=== PATIENT | female | born 1960 | race Caucasian/White ===

== ENCOUNTER 2016-10-05 16:23 | Observation (INO) ==
[2016-10-05] MEDS ORDERED: 0.9 % Sodium Chloride 500 ML IVC ONE (16:51)
[2016-10-05 17:03] LABS: Basophils % 0.7 %; Eosinophils # 0.1 K/mcL (0.0-0.6); Eosinophils % 1.2 %; Hematocrit 42.6 % (35.3-44.9); Hemoglobin 13.8 g/dL (11.5-15.4); Immature Granulocytes % 0.5 % (0-4); Lymphocytes # 0.9 K/mcL (0.6-4.6); Lymphocytes % 15.2 %; Mean Corpuscular HGB Conc 32.4 g/dL (31.6-35.5); Mean Corpuscular Hemoglobin 25.9 pg (28.0-33.3); Mean Corpuscular Volume 79.9 fL (83.0-100.0); Mean Platelet Volume 9.9 fL (9.4-12.4); Monocytes # 0.6 K/mcL (0.0-1.3); Monocytes % 9.2 %; Neutrophils # 4.4 K/mcL (1.6-8.9); Platelet Count 236 K/mcL (140-400); Red Blood Count 5.33 M/mcL (3.82-4.97); Red Cell Distribution Width 13.6 % (11.5-14.5); Segmented Neutrophils % 73.2 %
--- NOTE | 2016-10-05 17:07 | Emergency Department Note ---
Disposition Clinical Impression: Chest pain Qualifiers: Chest pain type: unspecified Qualified Code(s): R07.9 - Chest pain, unspecified Disposition: Admitted As Inpatient Condition: Fair Time of Disposition: 18:18 Chest Pain HPI - General Chief Complaint: ED Chest Pain Stated Complaint: chest pain Source: patient, EMS Limitations: no limitations Vital Signs Reviewed: Yes Nursing Notes Reviewed: Yes - History of Present Illness HPI Narrative: 74-year-old female with chest pain for last 2 days. Patient says that her chest pain is worse feels her pressure when she is lying flat or sitting night. She is currently chest pain-free. She was transferred from the urgent care secondary to development of new left bundle branch block, other chest pain was free she was given 4-81 mg baby aspirin, nitroglycerin. Patient states that her pain does wake up today. Intermittent last days. She is a history of non- insulin-dependent diabetes, hypertension, no previous heart catheterizations. nonsmoker. Pt complaint: chest pain Onset (ago): day(s) (2) Duration: intermittent Onset: during rest Pain Location: substernal Severity: now resolved Severity scale (1-10): 0 Quality: aching, heaviness Improves with: nothing Worsens with: exertion, inspiration, supine Associated symptoms: Reports: nausea, dyspnea. Denies: vomiting, diaphoresis Treatments prior to arrival chest pain: aspirin - Related Data On Oral Contraceptives: No Home Medications Medication Instructions Recorded Confirmed Citalopram [CeleXA] 40 mg PO DAILY 06/07/15 10/05/16 Fluticasone Propionate Nasal 50 mcg NS DAILY 06/07/15 10/05/16 [Flonase] Liraglutide [Victoza 2-Luis A] 1.2 mg SQ QAM 06/07/15 10/05/16 Lisinopril [Zestril] 10 mg PO DAILY 06/07/15 10/05/16 Omeprazole [PriLOSEC] 40 mg PO DAILY 06/07/15 10/05/16 TraMADol [Ultram] 50 - 100 mg PO Q6HR PRN 06/07/15 10/05/16 Aspirin [Lo-Dose Aspirin EC] 81 mg PO DAILY 10/05/16 10/05/16 Aspirin/Acetaminophen/Caffeine 2 tab PO DAILY 10/05/16 10/05/16 [Excedrin Extra Strength Caplet] Insulin Glargine,Hum.rec.anlog 70 unit SQ HS 10/05/16 10/05/16 [Lantus Solostar] Allergies Allergy/AdvReac Type Severity Reaction Status Date / Time No Known Allergies Allergy Verified 06/07/15 13:52 Review of Systems: A 14 point ROS was obtained and was negative except as per below or as documented in the HPI. Constitutional: Denies: fever, chills, weakness, weight change Eyes: Denies: eye pain, eye discharge, vision change ENT: Denies: ear pain, throat pain, hearing loss, epistaxis, congestion, Cardiovascular: chest pain Denies: , palpitations, dyspnea on exertion, edema, syncope Respiratory: Denies: cough, dyspnea, wheezes, hemoptysis, stridor Gastrointestinal: Denies: abdominal pain, nausea, vomiting. diarrhea, constipation, hematemesis, hematochezia Genitourinary: Denies: urgency, dysuria, frequency, hematuria Musculoskeletal: Denies: back pain, neck pain, arthralgia, myalgia Integumentary: Denies: rash, abrasion, lesions Neurological: Denies: headache, weakness, numbness, paresthesias, confusion, abnormal gait Psychiatric: Denies: anxiety, depression, suicidal thoughts, homicidal thoughts , Endocrine: Denies: fatigue Hematological/Lymphatic: Denies: easy bleeding, easy bruising Allergic/Immunologic: Denies: facial swelling, urticaria All systems ED: reviewed and negative except as stated. Chest Pain PMH - Past Medical History Medical history: Reports: cancer, diabetes, GERD, hypertension, other Surgical history: Reports: hysterectomy (At [facility] 10/2014) Psychiatric history: Reports: no psych history [employer] history: Reports: non-contributory - Social History Smoking Status: Never smoker Alcohol use: Reports: none Drug use: Reports: none Physical Exam General: H appears mildly anxious but in no acute distress Head: NCAT, no lesions Eyes: sclera anicteric, conjunctiva normal, PERRLA bilaterally, EOMI Bilaterally Ears: normal inspection, external ear wnl Nose: nasal septum nondeviated, sinuses nontender Throat: good dentition, mucous membranes moist Neck: no lymphadenopathy, trachea midline no deviation, no JVD Resp: CTA bilaterally, no resp distress, symmetric chest rise, no wheezes, rales , or rhonchi bilaterally CV: Sinus tachycardia normal S1 and S2, no m/g/r, Pulses +2 Rad, +2 DP/PT Abdomen: Soft, NTND, no hepatosplenomegaly, no hernias, Negative Rovsing's sign , Negative Ramirez's sign Back: normal inspection, no tenderness to palpation, Negative CVA tenderness bilaterally Neuro: A&O3, CN II-XII grossly intact bilaterally, no motor or sensory deficits bilaterally, gait normal, GCS 15 [id number] Ext: normal inspection, symmetric Active and Passive ROM UE and LE bilaterally , no pedal edema bilaterally Psych: normal mood, normal affect Skin: No rashes, skin warm, dry, intact - General Limitations: no limitations General appearance: alert, in no apparent distress Course Course Narrative: 56-year-old female chest pain arrest last 2 days, she has a left bundle branch block, this appears new but the last EKG that she had was in 2009, I did discuss the case with Dr. Apple interventional cardiology and sent the EKG at 16: [address] Apple and Dr. Mohr, they state that the left bundle branch alone is not criteria for ACS or indication for a STEMI alert, he did recommend working up the patient as a possible ACS, chest pain rule out, given no chest pain now, is unlikely the patient is a STEMI A states no activation at this time. CP Workup ordered. - Reevaluation(s) Reevaluation #1: Admitted to [facility] Time: 18:19 Vital Signs Temperature 99.1 F 10/05/16 16:24 Pulse Rate 106 10/05/16 16:24 Respiratory Rate 16 10/05/16 16:24 Blood Pressure 172/105 10/05/16 16:24 O2 Sat by Pulse Oximetry 97 10/05/16 16:24 Temperature 99.1 F 10/05/16 16:24 Pulse Rate 89 10/05/16 18:00 Respiratory Rate 16 10/05/16 18:00 Blood Pressure 128/85 10/05/16 18:00 O2 Sat by Pulse Oximetry 97 10/05/16 18:00 Oxygen Delivery Oxygen Delivery Room Air Chest Pain - MDM Narrative Medical decision making narrative: 56-year-old female with new onset left bundle branch block, chest pain at rest, mostly sleeping, she has been chest pain-free in the ED, she did get 324 mg of aspirin, and admitted to medicine service in stable condition for chest pain rule out. Pulmonary negative, EKG showed new left bundle-branch block compared to previous EKG 6 years ago interventional list discussed no STEMI criteria at this time, - Medical Records Medical records reviewed: Yes I reviewed the patient's medical records. - Lab Data Lab results reviewed: Yes I reviewed the patient's lab results. Result diagrams: 10/05/16 16:35 10/05/16 16:35 Lab Results 10/05/16 10/05/16 10/05/16 Range/Units 16:35 16:35 16:35 WBC 6.0 (4.3-11.1) K/mcL RBC 5.33 H (3.82-4.97) M/mcL Hgb 13.8 (11.5-15.4) g/dL Hct 42.6 (35.3-44.9) % MCV 79.9 L (83.0-100.0) fL MCH 25.9 L (28.0-33.3) pg MCHC 32.4 (31.6-35.5) g/dL RDW 13.6 (11.5-14.5) % Plt Count 236 (140-400) K/mcL MPV 9.9 (9.4-12.4) fL Immature Gran % 0.5 (0-4) % Seg Neutrophils % 73.2 % Lymphocytes % 15.2 % Monocytes % 9.2 % Eosinophils % 1.2 % Basophils % 0.7 % Neutrophils # 4.4 (1.6-8.9) K/mcL Lymphocytes # 0.9 (0.6-4.6) K/mcL Monocytes # 0.6 (0.0-1.3) K/mcL Eosinophils # 0.1 (0.0-0.6) K/mcL Basophils # 0.0 (0.0-0.2) K/mcL PT 12.0 (9.4-12.1) Seconds INR 1.1 APTT 33.8 (26.0-36.0) Seconds D-Dimer 477 (0-500) ng/mLFEU Sodium (136-145) mEq/L Potassium (3.5-4.5) mEq/L Chloride (98-109) mEq/L Carbon Dioxide (19-29) mEq/L BUN (7-20) mg/dL Creatinine (0.57-1.11) mg/dL Est GFR ( Amer) (> 60) Est GFR (Non-Af Amer) (> 60) BUN/Creatinine Ratio (6-26) Glucose (70-99) mg/dL Calculated Osmolality (280-300) Calcium (8.6-10.8) mg/dL Troponin I (0-0.03) ng/mL B-Natriuretic Peptide 182 H (0-100) pg/mL 10/05/16 10/05/16 Range/Units 16:35 16:35 WBC (4.3-11.1) K/mcL RBC (3.82-4.97) M/mcL Hgb (11.5-15.4) g/dL Hct (35.3-44.9) % MCV (83.0-100.0) fL MCH (28.0-33.3) pg MCHC (31.6-35.5) g/dL RDW (11.5-14.5) % Plt Count (140-400) K/mcL MPV (9.4-12.4) fL Immature Gran % (0-4) % Seg Neutrophils % % Lymphocytes % % Monocytes % % Eosinophils % % Basophils % % Neutrophils # (1.6-8.9) K/mcL Lymphocytes # (0.6-4.6) K/mcL Monocytes # (0.0-1.3) K/mcL Eosinophils # (0.0-0.6) K/mcL Basophils # (0.0-0.2) K/mcL PT (9.4-12.1) Seconds INR APTT (26.0-36.0) Seconds D-Dimer (0-500) ng/mLFEU Sodium 138 (136-145) mEq/L Potassium 3.8 (3.5-4.5) mEq/L Chloride 106 (98-109) mEq/L Carbon Dioxide 23 (19-29) mEq/L BUN 10 (7-20) mg/dL Creatinine 0.83 (0.57-1.11) mg/dL Est GFR ( Amer) > 60 (> 60) Est GFR (Non-Af Amer) > 60 (> 60) BUN/Creatinine Ratio 12 (6-26) Glucose 151 H (70-99) mg/dL Calculated Osmolality 288 (280-300) Calcium 9.5 (8.6-10.8) mg/dL Troponin I 0.00 (0-0.03) ng/mL B-Natriuretic Peptide (0-100) pg/mL - Radiology Data Radiology results reviewed: Yes I reviewed the patient's radiology results. Chest X-Ray 10/05/16 16:51 IMPRESSION: No acute cardiopulmonary disease. D/ / Girish España MD / Girish España MD Interpreting Provider: Girish España MD - EKG Data EKG attestation: Yes I reviewed and interpreted this EKG. EKG shows normal: sinus rhythm (Ventricular rate 10 2 bpm [place] 162 QRS 144 QTc 428 ) Paulina/QRS: LBBB When compared to previous EKG there are: changes noted (She does noted new Left Bundle branch block from previous EKG May 2010) Interpretation: nonspecific ST-T wave changes - Core Measures AMI Core Measures Followed: Yes Heart Score - Score History: Moderately Suspicious EKG: Non Specific repolarisation Disturbance Age: 45-65 Risk Factors: Equal/Greater than 3 risk factor or history of atherosclerotic disease Troponin: Less than normal limit HEART Score Total: 5 Attestation Statement - Attestation Attestation: Patient was seen with resident physician. I reviewed the history, physical, assessment and plan, and agree with the findings. I also personally evaluated this patient and had [id number] time with this patient. 56-year-old female presents to the emergency department with chest pain for last 2 nights. Patient states the pain is mostly at night when she is lying down. Pressure sensation in her chest. It is associated with nausea. She has not had any vomiting. She did note that she had a period of sweating but she is not sure if it was associated with the chest pressure not. She was seen in urgent care and was found to have a left bundle branch block EKG. She is given aspirin and sent to the emergency department. Currently she is chest pain-free. On examination ENT is normal. Heart and lungs normal. Abdomen soft and nontender. Extremities are unremarkable no swelling. Neurologically patient is intact. On reviewing her EKG she does have what appears to be new left bundle-branch block, however her old EKG's from approximately 6 years ago such difficult to say when that change occurred. She is not currently chest pain- free and looks relatively comfortable, and does not appear to have acute coronary syndrome. We did discuss his case with both on-call cardiology and on- call interventionalists to have them review the EKGs and ensure the regular chest pain workup was indicated as opposed to something more aggressive. They were in agreement that a chest pain workup was indicated that no additional advanced cardiology intervention was required at this time. Will admit the patient to the hospitalist service for further evaluation and treatment as indicated by her symptoms. I agree with resident physician assessment and plan.
[2016-10-05 17:11] LABS: INR 1.1
[2016-10-05 17:14] LABS: Activated Partial Thrombo Time 33.8 Seconds (26.0-36.0); BUN/Creatinine Ratio 12 (6-26); Blood Urea Nitrogen 10 mg/dL (7-20); Calcium 9.5 mg/dL (8.6-10.8); Carbon Dioxide 23 mEq/L (19-29); Chloride 106 mEq/L (98-109); Glucose 151 mg/dL (70-99); Osmolality,Calculated 288 (280-300); Potassium 3.8 mEq/L (3.5-4.5); Sodium 138 mEq/L (136-145); eGFR For African Americans > 60 (> 60); eGFR For Non-African Americans > 60 (> 60)
[2016-10-05] MEDS ORDERED: Naloxone 0.4 MG/ML INJ IVP PRN (20:28)
[2016-10-05] MEDS ORDERED: Ondansetron ODT 4 MG TAB.RAPDIS SL PRN (20:28)
[2016-10-05] MEDS ORDERED: D5% in Water 1,000 ML IV PRN (20:31)
[2016-10-05] MEDS ORDERED: Dextrose Gel 15 GM PO PRN ×2 (20:31)
[2016-10-05] MEDS ORDERED: *HR* Dextrose 50 % in Water (Syg) 50 ML SYRINGE IVP PRN (20:31)
[2016-10-05] MEDS ORDERED: traMADol 50 MG TABLET PO PRN (20:33)
[2016-10-05] MEDS ORDERED: Nitroglycerin 0.4 MG TAB.SUBL SL PRN (20:34)
[2016-10-05] MEDS ORDERED: Acetaminophen/Aspirin/Caffeine TABLET PO PRN (20:44)
[2016-10-05] MEDS ORDERED: Acetaminophen 325 MG TABLET PO PRN (20:44)
--- NOTE | 2016-10-05 20:52 | Internal Med History&Physical ---
Date of Encounter: 10/05/16 Time of Encounter: 20:20 Assessment and Plan (1) Chest pain Current visit: Yes Status: Acute -Patient denies any episodes of chest pressure or chest pain throughout the day today -Left bundle branch on EKG is chronic as per the documented findings of EKG in May 2015 -However patient did have chest pressure the night before and given medical comorbidities will rule out ACS at this time -Trend serial troponins, ekg -Aspirin, Lipitor -Follow up lipid panel -Follow up 2-D echo -Follow up cardiology consultation ([employer] called by the ER physician) -Nitroglycerin sublingual when necessary chest pain -O2 supplementation as needed -We will keep nothing by mouth after midnight for any cardiology workup in the morning Qualifiers: Chest pain type: unspecified Qualified Code(s): R07.9 - Chest pain, unspecified (2) Left bundle branch block (LBBB) Current visit: Yes Status: Acute Appears to be chronic in nature last reported on the EKG in May 2015 (3) URI with cough and congestion Current visit: Yes Status: Chronic Continue supportive care Monitor off antibiotics Tylenol when necessary for fever Guaifenesin when necessary for cough (4) Hyperglycemia due to type 2 diabetes mellitus Current visit: Yes Status: Chronic Continue home dose of Lantus Hold oral antihyperglycemic agents at this time Started low dose correctional sliding scale insulin algorithm as needed continue to monitor fingerstick and blood glucose Qualifiers: Diabetes mellitus senior care insulin use: with senior care use Qualified Code( s): E11.65 - Type 2 diabetes mellitus with hyperglycemia; Z79.4 - 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 (5) Hypertension Current visit: Yes Status: Acute BP within acceptable range continue home medications continue to monitor Qualifiers: Hypertension type: essential hypertension Qualified Code(s): I10 - Essential (primary) hypertension (6) DVT prophylaxis Current visit: Yes Status: Acute Heparin SQ (7) GERD (gastroesophageal reflux disease) Current visit: Yes Status: Chronic Continue home medications Qualifiers: Esophagitis presence: esophagitis presence not specified Qualified Code(s) : K21.9 - Gastro-esophageal reflux disease without esophagitis Internal Medicine - H&P: HPI Chief complaint: transfer from [facility] for chest pain Admitted From: Home Plans for Post Hospital Care: Home History of present illness: Ms. Layne is a 56 year old female past medical history of hypertension, diabetes , hyperlipidemia, GERD, obese, endometrial cancer status post hysterectomy was transferred to the ER from urgent care for evaluation of chest pain. Patient states that she is currently going through an upper respiratory tract infection which she got from her granddaughter. She went to an urgent care for evaluation of her URI symptoms but she states that the night prior she was not able to lay flat and continued to have chest pressure along with diaphoresis due to which she was transferred to the ER. Patient was given aspirin 324 milligrams by mouth prior to her transfer. In the ER, patient was chest pain-free however EKG was consistent with left bundle branch block. During my evaluation patient is resting comfortably in bed, denies any chest pain, shortness of breath at this time states she has chronic cough and feels congested. Denies any prior cardiac workup but states she has history of chest pain in the past. At this time she is chest pain-free and denies any headache, lightheadedness, shortness of breath, abdominal pain, nausea, vomiting, fever, or chills. After reviewing the prior records, patient was noted to have an EKG in May 2015 which reported a left bundle branch block and an echocardiogram was done at that time which showed normal left ventricular structure and function with LVEF of 60%, mild left ventricular diastolic dysfunction was noted. Past Med Surg Social Fam HX - Past Medical History Medical history: cancer, diabetes, GERD, hypertension, other Psychiatric history: no psych history - Past Surgical History Surgical History: hysterectomy (At [facility] 10/2014) - Social History Smoking Status: Never smoker Smokeless Tobacco Status: No Alcohol use: none Drug use: none - Family History Mother Family Member Ethnicity: Non- Living Status: Hx Family Cardiac Disorders: No Hx Family Respiratory Disorders: No Hx Family Cancer: No Hx Family GI Disorders: No Hx Family Endocrine Disorder: No Hx Family Neuromuscular Disorders: No Hx Family Neurologic Disorders: No Hx Family HEENT Disorders: No Hx Family Autoimmune Disorders: No Grandmother Living Status: Internal Medicine - H&P: Meds Citalopram [CeleXA] 40 mg PO DAILY 06/07/15 [History] Fluticasone Propionate Nasal [Flonase] 50 mcg NS DAILY 06/07/15 [History] Liraglutide [Victoza 2-Luis A] 1.2 mg SQ QAM 06/07/15 [History] Lisinopril [Zestril] 10 mg PO DAILY 06/07/15 [History] Omeprazole [PriLOSEC] 40 mg PO DAILY 06/07/15 [History] TraMADol [Ultram] 50 - 100 mg PO Q6HR PRN 06/07/15 [History] Aspirin [Lo-Dose Aspirin EC] 81 mg PO DAILY 10/05/16 [History] Aspirin/Acetaminophen/Caffeine [Excedrin Extra Strength Caplet] 2 tab PO DAILY 10/05/16 [History] Insulin Glargine,Hum.rec.anlog [Lantus Solostar] 70 unit SQ HS 10/05/16 [History ] Allergies No Known Allergies Allergy (Verified 06/07/15 13:52) All Systems PM: A 10-system review of systems was performed and is negative for pertinent findings except as documented above in the HPI. - Constitutional Constitutional: as per HPI - Constitutional Vitals: Temp Pulse Resp BP Pulse Ox 98.5 F 82 15 135/88 96 10/05/16 18:50 10/05/16 18:50 10/05/16 18:50 10/05/16 18:50 10/05/16 18:50 Internal Med - H&P Results - Labs CBC & Chem 7: 10/05/16 16:35 10/05/16 16:35
[2016-10-05] MEDS: Insulin DETEMIR 100 UNIT/ML X5UNITS SQ SCH (21:56)
[2016-10-06 04:47] LABS: Basophils % 1.1 %; Eosinophils # 0.1 K/mcL (0.0-0.6); Eosinophils % 2.2 %; Hematocrit 40.3 % (35.3-44.9); Immature Granulocytes % 0.6 % (0-4); Lymphocytes % 29.1 %; Mean Corpuscular HGB Conc 32.3 g/dL (31.6-35.5); Mean Corpuscular Hemoglobin 26.3 pg (28.0-33.3); Mean Corpuscular Volume 81.6 fL (83.0-100.0); Mean Platelet Volume 9.8 fL (9.4-12.4); Monocytes # 0.5 K/mcL (0.0-1.3); Monocytes % 13.7 %; Neutrophils # 1.9 K/mcL (1.6-8.9); Platelet Count 198 K/mcL (140-400); Red Blood Count 4.94 M/mcL (3.82-4.97); Red Cell Distribution Width 13.8 % (11.5-14.5); Segmented Neutrophils % 53.3 %
[2016-10-06 05:06] LABS: BUN/Creatinine Ratio 11 (6-26); Blood Urea Nitrogen 9 mg/dL (7-20); Carbon Dioxide 26 mEq/L (19-29); Chloride 109 mEq/L (98-109); Chol/HDL Ratio 6.1 (0-4.9); Cholesterol 212 mg/dL (< 200); Glucose 71 mg/dL (70-99); HDL Cholesterol 35 mg/dL (40-59); LDL Cholesterol,Calculated 138 mg/dL (0-99); Magnesium 2.2 mg/dL (1.6-2.6); Osmolality,Calculated 291 (280-300); Phosphorous 4.3 mg/dL (2.3-4.7); Potassium 3.6 mEq/L (3.5-4.5); Sodium 142 mEq/L (136-145); Triglycerides 195 mg/dL (< 150); eGFR For African Americans > 60 (> 60); eGFR For Non-African Americans > 60 (> 60)
[2016-10-06] MEDS: *HR* Heparin 5,000 UNIT/ML VIAL SQ SCH ×2 (06:19→18:26)
[2016-10-06] MEDS ORDERED: Acetaminophen/Aspirin/Caffeine TABLET PO SCH (09:00)
[2016-10-06] MEDS: GuaiFENesin Liq 200 MG/10 ML UDC PO PRN ×2 (09:20→18:25)
[2016-10-06] MEDS: Aspirin Enteric Coated 81 MG Tablet PO SCH (09:21)
[2016-10-06] MEDS: Fluticasone Propionate Nasal 50 MCG/SPRAY BOTTLE NS SCH (09:24)
--- NOTE | 2016-10-06 09:24 | Cardiology Consult Note ---
Date of Encounter: 10/06/16 Time of Encounter: 09:11 Assessment and Plan (1) Chest pain Current Visit: Yes Status: Acute Atypical--pleuritic in nature in setting of suspected URI--heaviness when coughing. Troponins negative x 3. No EKG changes--LBBB noted, but also present in 2014. Pt does have multiple risk factors for CAD--HTN, DM, HLD, s/p hysterectomy. We do recommend a nuclear stress test in the near future. Timing discussed, pt prefers to follow-up as outpt in upcoming weeks and have stress test as an outpt after she recovers from her URI, as she reports a headache and sore throat this morning and overall not feeling well. Denies any active chest pain. Echo pending. If no significant findings, outpt follow-up and stress test at that time. Will sign off if no significant findings on echo. Last echo 05/2015 EF 60%, mild LVDD. Qualifiers: Chest pain type: unspecified Qualified Code(s): R07.9 - Chest pain, unspecified (2) Left bundle branch block (LBBB) Current Visit: Yes Status: Chronic Not new--noted on EKG 05/2015 as well. Echo at that time showed EF 60%, mild LVDD. (3) URI with cough and congestion Current Visit: Yes Status: Acute URI with dry cough, headache, congestion, sore throat, low grade fever, chils. She is concerned because she was exposed to strep over the weekend. Will order strep test. Discussion w patient/family: The assessment and plan as outlined above was discussed with the patient and/or family members who expressed understanding and agreement. All questions were answered. Thank you for involving us in the care of your patient. Please call with any questions. I will discuss all the above with Dr. Mohr and make changes as necessary. History of Present Illness Consult date: 10/06/16 Requesting physician: Shahla Beatty Consult reason: Chest pain Chief complaint: congestion, sore throat History of present illness: Ms. Layne is a 56 year old female with PMH of hypertension, diabetes, hyperlipidemia, GERD, obese, endometrial cancer status post hysterectomy was transferred to the ER from urgent care for evaluation of chest pain. Patient states that she was exposed to strep throat over the weekend, developed a sore throat, headache, dry cough and congestion on Wednesday. She reports she was a little short of breath while lying flat on Wednesday night. She admits to low grade temps ~99 range and chills. She reports some chest heaviness only while coughing. She had a LBBB noted on EKG in 2014, not new and an echo at that time revealed EF 60% with mild diastolic dysfunction. Cardiology was consulted for further recommendations. Troponins negative x 3. Past Med Surg Social Fam HX - Past Medical History Medical history: cancer, diabetes, GERD, hyperlipidemia, hypertension, other Psychiatric history: no psych history - Past Surgical History Surgical History: hysterectomy (At [facility] 10/2014) - Social History Smoking Status: Never smoker Smokeless Tobacco Status: No Alcohol use: none Drug use: none - Family History Mother Family Member Ethnicity: Non- Living Status: Hx Family Cardiac Disorders: No Hx Family Respiratory Disorders: No Hx Family Cancer: No Hx Family GI Disorders: No Hx Family Endocrine Disorder: No Hx Family Neuromuscular Disorders: No Hx Family Neurologic Disorders: No Hx Family HEENT Disorders: No Hx Family Autoimmune Disorders: No Grandmother Living Status: Medications and Allergies Citalopram [CeleXA] 40 mg PO DAILY 06/07/15 [History] Fluticasone Propionate Nasal [Flonase] 50 mcg NS DAILY 06/07/15 [History] Liraglutide [Victoza 2-Luis A] 1.2 mg SQ QAM 06/07/15 [History] Lisinopril [Zestril] 10 mg PO DAILY 06/07/15 [History] Omeprazole [PriLOSEC] 40 mg PO DAILY 06/07/15 [History] TraMADol [Ultram] 50 - 100 mg PO Q6HR PRN 06/07/15 [History] Aspirin [Lo-Dose Aspirin EC] 81 mg PO DAILY 10/05/16 [History] Aspirin/Acetaminophen/Caffeine [Excedrin Extra Strength Caplet] 2 tab PO DAILY 10/05/16 [History] Insulin Glargine,Hum.rec.anlog [Lantus Solostar] 70 unit SQ HS 10/05/16 [History ] Allergies No Known Allergies Allergy (Verified 06/07/15 13:52) All Systems Review: A 10-system review of systems was performed and is negative for pertinent findings except as documented above in the HPI. - Constitutional Constitutional: chills, fever(s), headache(s) - Cardiovascular Cardiovascular: as per HPI, dyspnea at rest, dyspnea on exertion - Respiratory Respiratory: cough, dyspnea Physical Examination Vital Signs, Last 4 Hours Temp Pulse Resp BP Pulse Ox 10/06/16 07:07 98.2 F 91 16 128/82 97 Vital Signs Temp Pulse Resp BP Pulse Ox 10/06/16 07:07 98.2 F 91 16 128/82 97 10/06/16 03:46 97.8 F 71 15 103/65 96 10/06/16 00:05 98.2 F 83 14 126/70 95 10/05/16 18:50 98.5 F 82 15 135/88 96 10/05/16 18:39 16 123/83 10/05/16 18:00 89 16 128/85 97 10/05/16 17:30 89 16 134/90 97 10/05/16 17:15 94 16 130/87 98 10/05/16 17:00 97 16 133/96 97 10/05/16 16:24 99.1 F 106 16 172/105 97 Intake and Output 10/05/16 10/06/16 10/06/16 23:59 07:59 15:59 Intake Total 500 / 500 Balance 500 / 500 Intake: IV Fluids 500 / 500 0.9 % Sodium Chloride 500 500 / 500 ML @ 1875 mls/hr IVC . Q16M ONE Rx#:[id number] Other: Meal NPO # Voids 1 Weight 89.358 kg 84.595 kg Blood Glucose* 263 68 Patient Weight 10/06/16 23:59 Weight 84.595 kg General: Conversant, No Apparent Distress HEENT: Atraumatic, Normocephaly, Mucus Membranes Moist Neck: No JVD, Normal carotid pulses Cardiac: Reg Rate and Rhythm, Normal S1 and S2, No Murmur Lungs: Normal Breath Sounds, No Wheeze, Rales, Rhonchi Neuro: Alert and responsive, No focal deficits noted Abdomen: Soft, Non-Tender Skin: No rashes noted on visualized skin Musculoskeletal: No Chest Wall Tenderness Extremities: No Clubbing, No Cyanosis, No Edema, Normal Pulses Results 10/06/16 04:27 10/06/16 04:27 Lab Results 10/05/16 10/06/16 10/06/16 22:09 04:27 04:27 WBC 3.6 L Hgb 13.0 Hct 40.3 Plt Count 198 Sodium 142 Potassium 3.6 Chloride 109 Carbon Dioxide 26 BUN 9 Creatinine 0.83 Glucose 71 Calcium 9.0 Magnesium 2.2 Troponin I 0.00 10/06/16 04:27 WBC Hgb Hct Plt Count Sodium Potassium Chloride Carbon Dioxide BUN Creatinine Glucose Calcium Magnesium Troponin I 0.00 Short CBC 10/06/16 10/05/16 Range/Units 04:27 16:35 WBC 3.6 L 6.0 (4.3-11.1) K/mcL Hgb 13.0 13.8 (11.5-15.4) g/dL Hct 40.3 42.6 (35.3-44.9) % Plt Count 198 236 (140-400) K/mcL Neutrophils # 1.9 4.4 (1.6-8.9) K/mcL BMP 10/06/16 10/05/16 Range/Units 04:27 16:35 Sodium 142 138 (136-145) mEq/L Potassium 3.6 3.8 (3.5-4.5) mEq/L Chloride 109 106 (98-109) mEq/L Carbon Dioxide 26 23 (19-29) mEq/L BUN 9 10 (7-20) mg/dL Creatinine 0.83 0.83 (0.57-1.11) mg/dL Glucose 71 151 H (70-99) mg/dL Calcium 9.0 9.5 (8.6-10.8) mg/dL Cardiac Enzymes 10/06/16 10/05/16 10/05/16 Range/Units 04:27 22:09 16:35 Troponin I 0.00 0.00 0.00 (0-0.03) ng/mL Impressions Chest X-Ray 10/05/16 16:51 IMPRESSION: No acute cardiopulmonary disease. D/ / Girish sEpaña MD / Girish España MD Interpreting Provider: Girish España MD Active Medications Acetaminophen (Tylenol) 650 mg PO Q6HR PRN PRN Reason: Fever Stop: 04/06/17 20:45 Last Admin: 10/06/16 09:21 Dose: 650 mg Acetaminophen/Aspirin/Caffeine (Excedrin Ex) 2 each PO DAILY PRN PRN Reason: Headache Stop: 04/07/17 09:01 Aspirin (Aspirin Ec) 81 mg PO DAILY DEMETRA Stop: 04/07/17 09:01 Last Admin: 10/06/16 09:21 Dose: 81 mg Atorvastatin Calcium (Lipitor) 40 mg PO HS DEMETRA Stop: 04/06/17 21:16 Last Admin: 10/05/16 21:56 Dose: 40 mg Citalopram Hydrobromide (Celexa) 40 mg PO DAILY DEMETRA Stop: 04/07/17 09:01 Last Admin: 10/06/16 09:21 Dose: 40 mg Dextrose/Water (Dextrose 50% (Syg)) 25 ml IVP AD PRN PRN Reason: Hypoglycemia Stop: 04/06/17 20:32 Last Admin: 10/06/16 06:19 Dose: 25 ml Fluticasone Propionate (Flonase) 50 mcg NS DAILY DEMETRA PRN Reason: Protocol Stop: 04/07/17 09:01 Last Admin: 10/06/16 09:24 Dose: 50 mcg Glucagon (Glucagen) 1 mg IM ONCE PRN PRN Reason: Hypoglycemia Stop: 04/06/17 20:32 Glucose (Gluctose) 15 gm PO ONCE PRN PRN Reason: Hypoglycemia Stop: 04/06/17 20:32 Glucose (Gluctose) 30 gm PO ONCE PRN PRN Reason: Hypoglycemia Stop: 04/06/17 20:32 Guaifenesin (Robitussin Liq) 200 mg PO Q6HR PRN PRN Reason: Cough Stop: 04/06/17 20:45 Last Admin: 10/06/16 09:20 Dose: 200 mg Heparin Sodium (Porcine) (Heparin) 5,000 unit SQ Q12HR DEMETRA Stop: 04/07/17 06:01 Last Admin: 10/06/16 06:19 Dose: 5,000 unit Dextrose (Dextrose 5%) 1,000 mls @ 100 mls/hr IV CONT PRN PRN Reason: HYPOGLYCEMIA Stop: 04/06/17 20:32 Insulin Detemir (Levemir) 70 unit SQ HS DEMETRA Stop: 04/06/17 21:01 Last Admin: 10/05/16 21:56 Dose: 70 unit Insulin Human Lispro (Humalog) 0 units SQ Q6HR DEMTERA PRN Reason: Protocol Stop: 04/07/17 22:01 Lisinopril (Zestril) 10 mg PO DAILY DEMETRA PRN Reason: Protocol Stop: 04/07/17 09:01 Last Admin: 10/06/16 09:21 Dose: 10 mg Naloxone HCl (Narcan) 0.4 mg IVP Q2MIN PRN PRN Reason: Opioid Reversal Stop: 04/06/17 20:29 Nitroglycerin (Nitroglycerin) 0.4 mg SL Q5MIN PRN PRN Reason: Chest Pain Stop: 04/06/17 20:35 Omeprazole (Prilosec) 40 mg PO 0630 DEMETRA Stop: 04/07/17 06:31 Last Admin: 10/06/16 06:19 Dose: 40 mg Ondansetron HCl (Zofran Odt) 4 mg SL Q6HR PRN PRN Reason: Nausea And Vomiting Stop: 04/06/17 20:29 Tramadol HCl (Ultram) 50 mg PO Q6HR PRN PRN Reason: Pain Stop: 04/06/17 20:34 - Imaging and Cardiology Chest Xray: report reviewed Echo: report reviewed (05/2015 EF 60%, mild diastolic dysfunction.) - EKG Interpretation EKG results cardiology: personally reviewed (SR, LBBB), other (12 hour tele AVG HR 89 SR, no significant pauses or arrhythmias.) Consult Discharge Plan - Plan Referrals: Quoc Cordoba DO [Primary Care Provider] -
--- NOTE | 2016-10-06 11:53 | ECHO - Doppler Report ---
Echocardiogram Name: Latosha Layne Date of Study: 10/06/2016 Date: 1960 Ht: 66.0 in Medical Record#: [id number] Age: 56 Wt: 186.0 lb Gender: Female BSA: 1.94 Order #: [id number] Location: [facility] Room #: [id number] Reading Physician: Reji Sigala MD, [facility] Marketing Intelligence Analyst: Ritu Schwartz RDCS, RVT Ordering Physician: Shalha Beatty MD Primary Physician: Quoc Cordoba DO Indications: Rule Out Wall Motion Abnormalities Impressions: Moderate left ventricular systolic dysfunction, LVEF 35-40%. There is global hypokinesis with regional variations. There is atypical septal motion consistent with bundle branch block. Normal right ventricular size and function. Mildly dilated left atrium. No significant valvular dysfunction. Unable to estimate RVSP due to lack of TR jet. Left Ventricular Wall Motion: Rest Echo Findings The apex, apical inferior, mid inferior, basal inferior, apical anterior, mid anterior, basal anterior, apical septal, mid inferior septal, basal inferior septal, apical lateral, mid anterior lateral, basal anterior lateral, mid anterior septal, mid inferior lateral, basal anterior septal and basal inferior lateral ambriz were hypokinetic. Findings: Study Quality * Technically adequate exam. ECG Findings * Sinus rhythm with BBB. Left Ventricle * Moderate left ventricular systolic dysfunction, LVEF 35-40%. There is global hypokinesis with regional variations. There is atypical septal motion consistent with bundle branch block. * Normal LV size and wall thickness. * Indeterminate diastolic function. Right Ventricle * Normal right ventricular size and function. Left Atrium * Mildly dilated left atrium. Right Atrium * Normal right atrial size. Aorta * Normally sized aortic root. Pericardium * There is a trivial pericardial effusion present. IVC * Normal IVC dimensions and inspiratory collapse. Aortic Valve * Aortic valve not well visualized. * No aortic stenosis. * No aortic regurgitation. Mitral Valve * Mild mitral annular calcification * No mitral stenosis. * Trace mitral regurgitation. Tricuspid Valve * Normal tricuspid valve structure. * No tricuspid stenosis. * Trace tricuspid regurgitation. * Unable to estimate RVSP due to lack of TR jet. Pulmonic Valve * Pulmonic valve not well visualized. * No pulmonic stenosis. * No pulmonic regurgitation. History Hypertension Diabetes Hypercholesteremia Family History of CAD 06-08-2015 a Previous Echo was performed. Measurements: BP: 128/ 82 2D Normal Values RVIDd: 2.90 cm IVSd: 1.00 cm 0.6 - 1.0 cm LVIDd: 5.40 cm 3.7 - 5.6 cm LVPWd: 1.00 cm 0.6 - 1.1 cm LVIDs: 4.40 cm 1.5 - 3.6 cm AO: 3.10 cm < 4.0 cm %FS: 18.50 cm >25 % LA volume: 67 Updated by Reji Sigala MD, [facility] on 10/06/2016 11:46:35 AM electronically signed on 10/06/2016 11:48:06 AM with status of Final Wall Motion Rubi: 1=Normal, 2=Hypokinesis, 3=Akinesis, 4=Dyskinesis, 5=Aneurysmal, 6=Hyperkinetic, X=Not Visualized (Blank)=Missing
[2016-10-06] MEDS ORDERED: *HR* Heparin 10,000 UNIT/10 ML VIAL ONE (13:45)
[2016-10-06] MEDS ORDERED: 0.9 % Sodium Chloride 1,000 ML ONE ×2 (13:45→15:16)
[2016-10-06] MEDS ORDERED: Heparin 1,000 UNITS/500 mL NS 500 ML ONE (13:45)
--- NOTE | 2016-10-06 14:59 | Pre-Sedation Evaluation ---
Pre-sedation evaluation - Pre-sedation checklist Date of procedure: 10/06/16 Procedure: [facility] Recent Vitals: Last Vital Signs Temp 98.7 F 10/06/16 12:30 Pulse 94 10/06/16 12:30 Resp 16 10/06/16 12:30 BP 115/75 10/06/16 12:30 Pulse Ox 96 10/06/16 12:30 H&P (including ROS) documented in medical record: Yes Previous reaction to sedatives/anesthetics: No Dietary Status: NPO 6 hours prior to procedure Airway Assessment: Patient can open mouth completely, TMJ function normal, Micrognathia (under-bite, receding chin) absent, Neck with adequate range of motion Dentition: No loose teeth or bridges Possible difficult airway: No ASA Classification *see protocol: CLASS II-Mild systemic disease Plan of Care: Pt appropriate candidate for procedure/moderate/conscious sedation , Risks/benefits of procedure/sedation discussed w/ patient/family
[2016-10-06] MEDS ORDERED: *HR* Midazolam HCl 2 MG/2 ML VIAL ONE (15:15)
[2016-10-06] MEDS ORDERED: *HR* FentaNYL (PF) 100 MCG/2 ML VIAL ONE (15:16)
[2016-10-06] MEDS ORDERED: Furosemide 40 MG/4 ML VIAL ONE (15:49)
--- NOTE | 2016-10-06 16:01 | Internal Med Progress Note ---
Date of Encounter: 10/06/16 Time of Encounter: 13:00 - Assessment and plan (1) Systolic congestive heart failure Current Visit: Yes Status: Acute Assessment and plan: Patient was found systolic congestive heart failure, LVEF 35-40%. Possibly chronic. Patient has no symptoms. Plan for catheterization today. Further management plan will follow cardiology recommendation. Qualifiers: Congestive heart failure chronicity: chronic Qualified Code(s): I50.22 - Chronic systolic (congestive) heart failure (2) Chest pain Current Visit: Yes Status: Acute Assessment and plan: Resolved. 3 sets of troponin negative. ACS is ruled out. Qualifiers: Chest pain type: precordial chest pain Qualified Code(s): R07.2 - Precordial pain (3) Hypertension Current Visit: Yes Status: Acute Assessment and plan: BP is well-controlled, continue home medication Qualifiers: Hypertension type: essential hypertension Qualified Code(s): I10 - Essential (primary) hypertension (4) Hyperlipidemia Current Visit: Yes Status: Chronic Assessment and plan: continue home medication Qualifiers: Hyperlipidemia type: unspecified Qualified Code(s): E78.5 - Hyperlipidemia , unspecified (5) Diabetes mellitus, type 2 Current Visit: No Status: Chronic Assessment and plan: Will continue basal and sliding scale insulin. Follow-up of glucose levels Qualifiers: Diabetes mellitus complication status: without complication Diabetes mellitus retirement insulin use: with long term care phlebotomist use Qualified Code(s): E11.9 - Type 2 diabetes mellitus without complications; Z79.4 - [facility] (current) use of insulin (6) DVT prophylaxis Current Visit: Yes Status: Acute Assessment and plan: Heparin subcutaneously - Subjective Interval history: Patient is a 56-year-old female admitted for chest pain. Her past medical history is significant for hypertension, diabetes, hyperlipidemia, GERD, endometrial cancer S/P hysterectomy. Patient was seen and examined. She had no further chest pain, vital signs stable. 3 troponin negative. Cardiology consult saw Patient. Patient's echo result shows systolic dysfunction, which is not displayed on 2015 echo test. Plan for catheterization today. - Constitutional Vitals: Temp Pulse Resp BP Pulse Ox 98.7 F 94 16 115/75 96 10/06/16 12:30 10/06/16 12:30 10/06/16 12:30 10/06/16 12:30 10/06/16 12:30 General appearance: Present: A&O X 3, pleasant, no acute distress, answers questions appropriately - Head Head exam: Present: atraumatic, normocephalic - Eye Eye exam: Present: PERRL, conjuntiva pink, sclera anicteric Pupils: Present: PERRL - Neck Neck exam general surgery: Present: supple, trachea midline. Absent: lymphadenopathy - Respiratory Respiratory exam: Present: CTAB. Absent: accessory muscle use, rales, rhonchi, wheezes - Cardiovascular Cardiovascular exam: Present: RRR, +S1, +S2. Absent: diastolic murmur, gallop, rubs, systolic murmur - GI/Abdominal GI/Abdominal exam: Present: normal bowel sounds, soft, no peritoneal signs. Absent: distended, tenderness - Extremities Exam Extremities exam: Present: warm, radial pulses palpable and symetrical. Absent : calf tenderness, cyanotic, pedal edema - Neurological Exam Neurological exam: Present: CN II-XII intact, oriented X3, no focal deficits. Absent: pronater drift, facial droop, speech deficit - Skin Skin exam: Present: dry, intact Internal Medicine: Result - Labs CBC & Chem 7: 10/06/16 04:27 10/06/16 04:27 Labs: Short CBC 10/06/16 Range/Units 04:27 WBC 3.6 L (4.3-11.1) K/mcL Hgb 13.0 (11.5-15.4) g/dL Hct 40.3 (35.3-44.9) % Plt Count 198 (140-400) K/mcL Neutrophils # 1.9 (1.6-8.9) K/mcL BMP 10/06/16 04:27 Sodium 142 Potassium 3.6 Chloride 109 Carbon Dioxide 26 BUN 9 Creatinine 0.83 Glucose 71 Calcium 9.0 Cardiac Enzymes 10/05/16 10/06/16 Range/Units 22:09 04:27 Troponin I 0.00 0.00 (0-0.03) ng/mL - ABG Interpretation ABG results: PT/INR, D-dimer PT 12.0 Seconds (9.4-12.1) 10/05/16 16:35 D-Dimer 477 ng/mLFEU (0-500) 10/05/16 16:35 Consult Discharge Plan - Plan Referrals: Quoc Cordoba DO [Primary Care Provider] -
--- NOTE | 2016-10-06 16:02 | Invasive Diagnostic Lab Proc ---
Name: Latosha Layne Date of Study: 10/06/2016 Date: 1960 Ht: 66.1in Medical Record#: [id number] Age: 56 Wt: 186.29lb Gender: Female BSA: 1.94 Order #: [id number] BMI: 29.94 Physicians Procedure Physician: Cheryl Chin MD, [facility] Referring MD: Referring MD: Staff Name Position Time In Raquel Deleon RN [employer] Room Operator 03:21 PM Bessie Stone RT (R) Scrub 03:21 PM Sylvia Castillo RN Monitor 03:21 PM Indications Indication Unstable Angina Cardiomyopathy Procedures Performed Procedure L HRT ARTERY/VENTRICLE ANGIO Pre-Procedure Checklist Informed consent is complete signed and on chart. H\\T\\P is on chart. ID band is on and ID verified with patient. Patient NPO for procedure The procedure was described for the patient and questions were answered. ECG is on chart. Plan of Care Patient will tolerate the procedure without complications. Adequate level of comfort will be maintained. Hemodynamics will remain stable Patient will recover from procedure without complications. Respiratory function will be maintained. Cardiac rhythm will remain stable. Patient temperature will be maintained. Patient and/or family have verbalized understanding of the procedure. Patient Education Chief Complaint/Reason for Test: Cardiac Cath Developmental Category: Adult (18-64 years) Developmentally Appropriate for Age: Yes Learning Barriers: None Education Needs: Procedure Education Method: Verbal Information Taught: Cardiac Cath Educational Evaluation: Able to repeat information Intravenous Access Time IV Size Location DC'd Fluid/Drip Rate Units RN 02:28 PM 20g 1 1/" Patent On Arrival Lt Antecubital 0.9NaCl 25 ml/hr Raquel Deleon RN Allergies Codeine Vital Signs Time BP (mmHg) HR (bpm) O2 Sat. RR (bpm) LOC 03:22 PM / % 5 = Fully awake and oriented or at pre-proc level 03:22 PM / % 4 = Oriented but drowsy 03:23 PM 168 / 111 % 03:28 PM 153 / 102 96 96 % 12 03:33 PM 157 / 100 98 96 % 11 03:38 PM 150 / 104 100 96 % 24 03:43 PM 137 / 110 102 93 % 21 Procedural Medications Time Medication Dose Units Method Given By 03:22 PM Oxygen 2 L/min nasal cannula Raquel Deleon RN 03:27 PM Versed 2 mg Intravenous Raquel Deleon RN 03:27 PM Fentanyl 50 mcg Intravenous Raquel Deleon RN 03:34 PM Lidocaine 2% 20 ml Subcutaneous Cheryl Chin MD, [facility] 03:49 PM Lasix 40 mg Intravenous Raquel Deleon RN ASA Classification: CLASS II- Mild systemic disease (i.e. well-controlled diabetes, hypertension, asthma, cigarette smoking) Harry Score Preprocedure Postprocedure Activity 2- Moves 4 extremities sustained head lift Activity 2- Moves 4 extremities sustained head lift Circulation 2- SBP +/= 20 points of pre-anesthetic level Circulation 2- SBP +/= 20 points of pre-anesthetic level Consciousness 2- Awake and alert oriented x 3 Consciousness 2- Awake and alert oriented x 3 O2 Saturation 2- Able to maintain O2 satruation of 92% on room air O2 Saturation 2- Able to maintain O2 satruation of 92% on room air Respiratory 2- Able to deep breathe and cough well Respiratory 2- Able to deep breathe and cough well Total Score 10 Total Score 10 Contrast Agent: Isovue Diagnostic Contrast: 70 ml Total Contrast: 70 ml Fluoro Dose: 402 mGy Procedure Log Time Note Enter By 02:25 PM CathStat 03:21 PM Pt arrived to rn labor delivery 2 at 15:21 [email or web address] 03:21 PM Raquel Deleon RN Position: [employer] Room Operator Time in: 15:21 [email or web address] 03:21 PM Bessie Stone RT (R) Position: Scrub Time in: 15:21 [email or web address] 03:21 PM Sylvia Castillo RN Position: Monitor Time in: 15:21 [email or web address] 03:21 PM Patient charges- Angio tray pack, Navilyst 3mm J, Pulse Oximetry and ACIST tubing and transducer [email or web address] 03:22 PM Case Delayed No [email or web address] 03:22 PM Hair removed from procedure site in procedure lab using clippers. Bilateral groin prepped with Chloraprep by Sylvia Castillo RN then patient draped. Skin intact. [email or web address] 03:22 PM Physician arrived 15:22 [email or web address] 03:22 PM ASA Class CLASS II- Mild systemic disease (i.e. well-controlled diabetes, hypertension, asthma, cigarette smoking) [email or web address] 03:22 PM Joseph and tristan completed [email or web address] 03:22 PM Sign in performed according to hospital policy. [email or web address] 03:22 PM Procedure start 15: [email or web address] 03: PM Time: 15:22 Oxygen on at 2 L/min per nasal cannula by Raquel Deleon RN [email or web address] 03: PM Time: 15:22 Patient comfortable and pain free: Yes [email or web address] 03: PM Time: 15:LOC: 5 = Fully awake and oriented or at pre-proc level [email or web address] 03:22 PM Clinical Presentation: Unstable angina [email or web address] 03: PM Case Start 03: PM Vitals capture started with the following parameters, Patient=Adult, Interval=5 min, Initial Djfitwyo=087 mmHg, Deflation Rate=5 mmHg, Cuff placed on Right Arm 03:23 PM TUVT=467/111 mmhg, Comment=ST 03:27 PM Recorded ECG: FU=773 Condition=Condition 1 03:27 PM Time: 15:27 Versed 2 mg Intravenous Given by Raquel Deleon RN [email or web address] 03:27 PM Time: 15:27 Fentanyl 50 mcg Intravenous Given by Raquel Deleon RN [email or web address] 03:28 PM HR=96 bpm, FEMB=102/102 mmhg, SpO2=96.0 %, Resp=12 B/min, Comment=ST 03:32 PM Pressure channel 1 zeroed. 03:32 PM Time out performed according to hospital policy [email or web address] 03:33 PM HR=98 bpm, LNUH=122/100 mmhg, SpO2=96.0 %, Resp=11 B/min, Comment=ST 03:36 PM Time: 15:34 20 ml Lidocaine 2% to right groin Subcutaneous Given by Cheryl Chin MD, [facility] [email or web address] 03:37 PM Access obtained by percutaneous puncture. 5Fr 10cm Terumo Jackson sheath placed in right Femoral artery. [id number] [email or web address] 03:37 PM 0.035 145cm Navilyst 3mmJ wire [id number] [email or web address] 03:37 PM Time: 15:22LOC: 4 = Oriented but drowsy [email or web address] 03:37 PM Time: 15:22 Patient comfortable and pain free: Yes [email or web address] 03:38 PM RZ=283 bpm, AROU=828/104 mmhg, SpO2=96.0 %, Resp=24 B/min, Comment=ST 03:38 PM 5Fr FL 4 catheter inserted over the wire DNC [email or web address] 03:39 PM LCA angiography performed in multiple views. [email or web address] 03:39 PM Recorded Pressure: Ao, HR=99, Condition=Condition 1 (Aorta) Ao 135/109/122 03:40 PM Catheter removed [email or web address] 03:40 PM 5Fr FR 4 catheter inserted over the wire DNC [email or web address] 03:41 PM RCA angiography performed in multiple views. [email or web address] 03:42 PM Recorded Pressure: Ao, KU=767, Condition=Condition 1 (Aorta) Ao 139/116/128 03:42 PM Coronary Dominance: right [email or web address] 03:42 PM Catheter removed [email or web address] 03:42 PM 5Fr Pigtail catheter inserted over the wire DN [email or web address] 03:42 PM Catheter selectively placed in left ventricle [email or web address] 03:43 PM Pressure channel 1 zeroed. 03:43 PM XE=073 bpm, YPEU=284/110 mmhg, SpO2=93.0 %, Resp=21 B/min, Comment=ST 03:43 PM Recorded Pressure: LV, YI=364, Condition=Condition 1 (Left Ventricle) LV 118/59/99 03:43 PM Bolus angiogram of left Ventricle complete: 8 ml/sec for a total of 24 mls [email or web address] 03:44 PM Pressure channel 1 zeroed. 03:44 PM Recorded Pressure: LV, CJ=671, Condition=Condition 1 (Left Ventricle) LV 120/48/100 03:44 PM Recorded Pressure: LV, Ao, WC=016, Condition=Condition 1 (Left Ventricle) LV 111/58/103, (Aorta) Ao 130/106/119 03:45 PM Catheter removed [email or web address] 03:45 PM Recorded Pressure: Ao, UI=783, Condition=Condition 1 (Aorta) Ao 169/90/119 03:46 PM Bolus angiogram of left Femoral complete: 4 ml/sec for a total of 7 mls [email or web address] 03:46 PM Procedure completed at 15:46 [email or web address] 03:48 PM Sign out completed: Radiation Dose 401.72 mGy Fluoro Time: 1.6 Isovue 370 - 200ml contrast 70 ml given by Cheryl Chin MD, [facility]. Complications: NoneCardiac Rehab Consult needed: NoConfirmed administered medications: Yes [email or web address] 03:48 PM Arterial sheath pulled, Mynx closure device used and was Successful [id number] S/N. [email or web address] 03:48 PM Post ECG Sinus Tachycardia [email or web address] 03:49 PM Post Blood Pressure 156/103 [email or web address] 03:49 PM 15:49 Post Pulses Bilateral DP \\T\\ PT 1+ [email or web address] 03:49 PM Information taught Cardiac Cath and Mynx [email or web address] 03:49 PM Education needs Procedure, Plan of Care, and Responsibilities of Patient in Care [email or web address] 03:49 PM Learning barriers :None [email or web address] 03:49 PM Education Methods Verbal [email or web address] 03:49 PM Education evaluation Able to repeat information [email or web address] 03:49 PM Time: 15:49 Lasix 40 mg Intravenous Given by Raquel Deleon RN [email or web address] 03:51 PM Site status No bleeding/hematoma - Rt Groin as reported by Sites, Bessie RT (R) at 15:51 [email or web address] 03:51 PM Opsite applied [email or web address] 03:51 PM Family placed in consult room. [email or web address] 03:52 PM Delay to floor No [email or web address] 03:54 PM Patient out of room: 15:54 [email or web address] 03:57 PM Report given to Brittany ODOM Pt taken to 3B Room #48. 15:56 [email or web address] Complications Complication None Hemodynamics Pressures Site Systolic/A Wave Diastolic/V Wave Mean AO 135 109 122 AO 139 116 128 LV 118 59 99 LV 120 48 100 LV 111 58 103 AO 130 106 119 AO 169 90 119 Post Procedure Information Blood Pressure: 156/103 mmHg Rhythm: Sinus Tachycardia Post procedural instructions were given Closure Device Time Device Success/Fail 10/06/2016 3:52:00 PM MynxGrip Successful Site Checks Time Location Status Staff Sheath In? Note 03:51 PM Rt Groin No bleeding/hematoma Sites, Bessie RT (R) Pulses Time Site Pre-Procedure Post-Procedure Note Bilateral DP \\T\\ PT 2+ 3:49:00 PM Bilateral DP \\T\\ PT 1+ Updated by Sylvia Castillo RN on 10/06/2016 3:57:21 PM electronically signed on 10/06/2016 3:57:39 PM with status of Final
[2016-10-06] MEDS ORDERED: 0.9 % Sodium Chloride 1,000 ML IVC SCH (16:15)
[2016-10-06] MEDS ORDERED: Isosorbide MONOnitrate (24 HR) 30 MG TAB.ER.24H PO SCH (16:15)
--- NOTE | 2016-10-06 18:30 | Electrocardiograph Report ---
[facility] Test Date: 2016-10-05 Pat Name: Latosha Layne Department: 103 Room: 3B48 Gender: F Tandem Operator: KIRILL : 1960 Requested By: Michael Joyner Order Number: [id number] Reading MD: Cheryl Chin Measurements Intervals [place] Rate: 102 P: 12 LA: 162 QRS: -9 QRSD: 144 T: 142 QT: 369 QTc: 428 Interpretive Statements SINUS TACHYCARDIA LEFT BUNDLE BRANCH BLOCK Electronically Signed On 10-06-16 18:29:20 EST by Cheryl Chin
--- NOTE | 2016-10-06 18:56 | Invasive Diagnostic Lab ---
Name: Latosha Layne Date of Study: 10/06/2016 Date: 1960 Ht: 168.0 cm /66.1 in Medical Record#: [id number] Age: 56 Wt: 84.5 kg / 186.29 lb Account/Order#: [id number] Gender: Female BSA: 1.94 Order #: [id number] Fluoro Dose: 402 mGy BMI: 29.94 Procedure Physician: Cheryl Chin MD, [facility] Referring MD: Referring MD: Procedures Performed: LEFT HEART CATH Indications: Unstable Angina, Cardiomyopathy Impressions: Coronary arteries are angiographically normal. There is moderately severe global LV Dysfunction EF 30% Severe diastolic dysfunction. Recommendations: Optimal medical therapy of patient's disease. Aggressive risk factor modification. History/Risk Factors: gerd Diabetes Hypertension Dyslipidemia Procedure Access obtained in the right Femoral artery by percutaneous puncture Complications: None Contrast: Isovue 70ml Closure Device: MynxGrip Hemodynamics: Pressures Site Systolic/ A Wave Diastolic/ V Wave End Diastolic/ Mean HR AO 135 109 122 99 AO 139 116 128 101 LV 118 59 99 103 LV 120 48 100 104 LV 111 58 103 100 AO 130 106 119 100 AO 169 90 119 104 LV Ventriculography Ejection Method: LV Gram Ejection Fraction: 30% Wall Motion: ANDERSON Anterobasal Moderate Hypokinesis Anterolateral Moderate Hypokinesis Apical: Moderate Hypokinesis Inferoapical Moderate Hypokinesis Inferobasal Moderate Hypokinesis Coronary Dominance: right Lesion Findings/Interventions * Left Main Coronary Artery The LMCA is angiographically free of disease. * Left Anterior Descending The LAD is angiographically free of disease. The 1st Diagonal is angiographically free of disease. * Circumflex The Circumflex is angiographically free of disease. The 1st Marginal is angiographically free of disease. * Right Coronary Artery The RCA is angiographically free of disease. The Right PDA is angiographically free of disease. Updated by Sylvia Castillo RN on 10/06/2016 3:54:51 PM Cheryl Chin MD, FACC electronically signed on 10/06/2016 6:49:53 PM with status of Final
[2016-10-06] MEDS ORDERED: Insulin LISPRO 300 UNITS/3 ML VIAL SQ SCH ×2 (21:00→22:00)
[2016-10-06] MEDS: Insulin DETEMIR 100 UNIT/ML X5UNITS SQ SCH (21:22)
--- NOTE | 2016-10-07 04:39 | Event Note ---
<Sylvia Patrick - Last Filed: 10/07/16 04:40> Date of Encounter: 10/07/16 Time of Encounter: 04:35 Hold Isosorbide Mononitrate ER 30mg for 24 hours due to BP 80/60 Will restart on 10/08/16 at 12:00 as to avoid giving with Coreg <Delta Reid Brian - Last Filed: 10/09/16 19:38> I examined this patient and my medical decision-making was reviewed with the Resident Physician. I agree with the documented findings, disposition and treatment plan as described except to the extent set forth below. My signature below is to certify that this patient is under my care and that I, or the Resident Physician working with me, has had a ulcd-lr-pwho encounter with this patient. Abnormal lab results WBC 3.4 K/mcL (4.3-11.1) L 10/07/16 04:43 MCV 81.1 fL (83.0-100.0) L 10/07/16 04:43 MCH 26.0 pg (28.0-33.3) L 10/07/16 04:43 Est GFR (Non-Af Amer) 53 (> 60) L 10/07/16 04:43 Glucose 165 mg/dL (70-99) H 10/07/16 04:43 POC Glucose 247 (58-89) H 10/07/16 10:58 B-Natriuretic Peptide 182 pg/mL (0-100) H 10/05/16 16:35 Triglycerides 195 mg/dL (< 150) H 10/06/16 04:27 Cholesterol 212 mg/dL (< 200) H 10/06/16 04:27 LDL Cholesterol, Calc 138 mg/dL (0-99) H 10/06/16 04:27 VLDL Cholesterol, Calc 39 mg/dL (< 31) H 10/06/16 04:27 HDL Cholesterol 35 mg/dL (40-59) L 10/06/16 04:27 Cholesterol/HDL Ratio 6.1 (0-4.9) H 10/06/16 04:27 Laboratory Last Values WBC 3.4 K/mcL (4.3-11.1) L 10/07/16 04:43 RBC 4.88 M/mcL (3.82-4.97) 10/07/16 04:43 Hgb 12.7 g/dL (11.5-15.4) 10/07/16 04:43 Hct 39.6 % (35.3-44.9) 10/07/16 04:43 MCV 81.1 fL (83.0-100.0) L 10/07/16 04:43 MCH 26.0 pg (28.0-33.3) L 10/07/16 04:43 MCHC 32.1 g/dL (31.6-35.5) 10/07/16 04:43 RDW 13.9 % (11.5-14.5) 10/07/16 04:43 Plt Count 223 K/mcL (140-400) 10/07/16 04:43 MPV 10.0 fL (9.4-12.4) 10/07/16 04:43 Immature Gran % 0.3 % (0-4) 10/07/16 04:43 Seg Neutrophils % 45.6 % 10/07/16 04:43 Lymphocytes % 42.6 % 10/07/16 04:43 Monocytes % 9.4 % 10/07/16 04:43 Eosinophils % 1.2 % 10/07/16 04:43 Basophils % 0.9 % 10/07/16 04:43 Neutrophils # 1.6 K/mcL (1.6-8.9) 10/07/16 04:43 Lymphocytes # 1.5 K/mcL (0.6-4.6) 10/07/16 04:43 Monocytes # 0.3 K/mcL (0.0-1.3) 10/07/16 04:43 Eosinophils # 0.0 K/mcL (0.0-0.6) 10/07/16 04:43 Basophils # 0.0 K/mcL (0.0-0.2) 10/07/16 04:43 PT 12.0 Seconds (9.4-12.1) 10/05/16 16:35 INR 1.1 10/05/16 16:35 APTT 33.8 Seconds (26.0-36.0) 10/05/16 16:35 D-Dimer 477 ng/mLFEU (0-500) 10/05/16 16:35 Sodium 139 mEq/L (136-145) 10/07/16 04:43 Potassium 3.7 mEq/L (3.5-4.5) 10/07/16 04:43 Chloride 104 mEq/L (98-109) 10/07/16 04:43 Carbon Dioxide 27 mEq/L (19-29) 10/07/16 04:43 BUN 17 mg/dL (7-20) 10/07/16 04:43 Creatinine 1.06 mg/dL (0.57-1.11) 10/07/16 04:43 Est GFR ( Amer) > 60 (> 60) 10/07/16 04:43 Est GFR (Non-Af Amer) 53 (> 60) L 10/07/16 04:43 BUN/Creatinine Ratio 16 (6-26) 10/07/16 04:43 Glucose 165 mg/dL (70-99) H 10/07/16 04:43 POC Glucose 247 (58-89) H 10/07/16 10:58 Calculated Osmolality 293 (280-300) 10/07/16 04:43 Calcium 9.2 mg/dL (8.6-10.8) 10/07/16 04:43 Phosphorus 4.3 mg/dL (2.3-4.7) 10/06/16 04:27 Magnesium 2.2 mg/dL (1.6-2.6) 10/06/16 04:27 Troponin I 0.00 ng/mL (0-0.03) 10/06/16 04:27 B-Natriuretic Peptide 182 pg/mL (0-100) H 10/05/16 16:35 Triglycerides 195 mg/dL (< 150) H 10/06/16 04:27 Cholesterol 212 mg/dL (< 200) H 10/06/16 04:27 LDL Cholesterol, Calc 138 mg/dL (0-99) H 10/06/16 04:27 VLDL Cholesterol, Calc 39 mg/dL (< 31) H 10/06/16 04:27 HDL Cholesterol 35 mg/dL (40-59) L 10/06/16 04:27 Cholesterol/HDL Ratio 6.1 (0-4.9) H 10/06/16 04:27 Chest X-Ray 10/05/16 16:51 IMPRESSION: No acute cardiopulmonary disease. D/ / Girish España MD / Girish España MD Interpreting Provider: Girish España MD
[2016-10-07] MEDS: *HR* Heparin 5,000 UNIT/ML VIAL SQ SCH (04:40)
[2016-10-07 05:00] LABS: Basophils % 0.9 %; Eosinophils % 1.2 %; Hematocrit 39.6 % (35.3-44.9); Hemoglobin 12.7 g/dL (11.5-15.4); Immature Granulocytes % 0.3 % (0-4); Lymphocytes # 1.5 K/mcL (0.6-4.6); Lymphocytes % 42.6 %; Mean Corpuscular HGB Conc 32.1 g/dL (31.6-35.5); Mean Corpuscular Volume 81.1 fL (83.0-100.0); Monocytes # 0.3 K/mcL (0.0-1.3); Monocytes % 9.4 %; Neutrophils # 1.6 K/mcL (1.6-8.9); Platelet Count 223 K/mcL (140-400); Red Blood Count 4.88 M/mcL (3.82-4.97); Red Cell Distribution Width 13.9 % (11.5-14.5); Segmented Neutrophils % 45.6 %
[2016-10-07 05:12] LABS: BUN/Creatinine Ratio 16 (6-26); Blood Urea Nitrogen 17 mg/dL (7-20); Calcium 9.2 mg/dL (8.6-10.8); Carbon Dioxide 27 mEq/L (19-29); Chloride 104 mEq/L (98-109); Glucose 165 mg/dL (70-99); Osmolality,Calculated 293 (280-300); Potassium 3.7 mEq/L (3.5-4.5); Sodium 139 mEq/L (136-145); eGFR For African Americans > 60 (> 60); eGFR For Non-African Americans 53 (> 60)
[2016-10-07] MEDS: Aspirin Enteric Coated 81 MG Tablet PO SCH (08:40)
[2016-10-07] MEDS: Fluticasone Propionate Nasal 50 MCG/SPRAY BOTTLE NS SCH (08:41)
[2016-10-07] MEDS: Insulin LISPRO 300 UNITS/3 ML VIAL SQ SCH ×3 (08:41→13:09)
[2016-10-07] MEDS ORDERED: Metoprolol XL (24 HR) Succ 25 MG TAB.ER.24H PO SCH (09:00)
--- NOTE | 2016-10-07 09:30 | Cardiology Progress Note ---
Date of Encounter: 10/07/16 Time of Encounter: 09:28 Assessment and Plan (1) NICM (nonischemic cardiomyopathy) Current Visit: Yes Status: Acute EF on echo yesterday 35-40%, previously normal. Global hypokinesis with regional variations. She underwent LHC which revealed angiographically normal coronaries EF 30%, severe diastolic dysfunction. Pt admits to being under a lot of stress recently. Was already on TREVOR-I, BB started yesterday and pt became hypotensive with systolic BP 80, now improved to 90. Will decrease TREVOR-I and BB, stop Imdur. She appears euvolemic on exam. Right femoral access site healing well. No bleeding, hematoma or ecchymosis noted. Will need repeat echo in 3 months to re-evaluate EF. If <35%, would need to discuss ICD. Will re-evaluate BP with med changes later today. (2) Systolic congestive heart failure Current Visit: Yes Status: Acute Echo EF 35-40%. LHC angiographically normal coronaries EF 30%, NICMP. Severe diastolic dysfunction. Was given one time dose of IV Lasix in seed analysis laboratory assistant. Pt reports feeling much better this AM. Appears euvolemic on exam. Qualifiers: Congestive heart failure chronicity: acute Qualified Code(s): I50.21 - Acute systolic (congestive) heart failure (3) Left bundle branch block (LBBB) Current Visit: Yes Status: Chronic Not new--noted on EKG 05/2015 as well. LHC angiographically normal coronaries. (4) URI with cough and congestion Current Visit: Yes Status: Acute URI with dry cough, headache, congestion, sore throat, low grade fever, chills. Rapid strep test negative. Discussion w patient/family: The assessment and plan as outlined above was discussed with the patient and/or family members who expressed understanding and agreement. All questions were answered. Thank you for involving us in the care of your patient. Please call with any questions. I will discuss all the above with Dr. Mohr and make changes as necessary. Subjective Principal diagnosis: NICMPl, CHF Interval history: Echo yesterday revealed decreased EF 35-40%--global with regional variations. She underwent LHC which revealed angiographically normal coronaries, moderately severe global LV dysfunction EF 30%. Severe diastolic dysfunction. She was given IV Lasix in seed analysis laboratory assistant, started on BB, Imdur. After receiving these meds BP dropped to 80 systolic. Pt denies any chest pain or dyspnea this AM, reports feeling much better. Admits to a lot of stress at home--financial and recent of a cousin. Objective Vital Signs, Last 4 Hours Temp Pulse Resp BP Pulse Ox 10/07/16 07:21 98.3 F 86 16 90/58 94 L Vital Signs Temp Pulse Resp BP Pulse Ox 10/07/16 07:21 98.3 F 86 16 90/58 94 L 10/07/16 04:14 98.0 F 77 16 80/60 94 L 10/06/16 23:26 98.1 F 81 16 102/59 95 10/06/16 19:53 100.4 F H 103 18 107/70 94 L 10/06/16 19:00 110/71 10/06/16 18:05 96 16 132/88 92 L 10/06/16 17:30 95 16 141/94 92 L 10/06/16 17:00 97 16 137/93 92 L 10/06/16 16:45 99 18 139/88 93 L 10/06/16 16:30 101 17 141/98 92 L 10/06/16 16:13 99.1 F 107 15 131/84 93 L 10/06/16 12:30 98.7 F 94 16 115/75 96 Intake and Output 10/06/16 10/07/16 10/07/16 23:59 07:59 15:59 Intake Total 1000 / 1000 800 / 800 Balance 1000 / 1000 800 / 800 Intake: Oral 1000 / 1000 800 / 800 Other: Weight 84.141 kg Blood Glucose* 268 190 Patient Weight 10/07/16 23:59 Weight 84.141 kg General: Conversant, No Apparent Distress HEENT: Atraumatic, Normocephaly, Mucus Membranes Moist Neck: No JVD, Normal carotid pulses Cardiac: Reg Rate and Rhythm, Normal S1 and S2, No Murmur Lungs: Normal Breath Sounds, No Wheeze, Rales, Rhonchi Neuro: Alert and responsive, No focal deficits noted Abdomen: Soft, Non-Tender Skin: Other (right femoral access site healing well. No bleeding, hematoma or ecchymosis noted.) Musculoskeletal: No Chest Wall Tenderness Extremities: No Clubbing, No Cyanosis, No Edema, Normal Pulses Results 10/07/16 04:43 10/07/16 04:43 Lab Results 10/07/16 10/07/16 04:43 04:43 WBC 3.4 L Hgb 12.7 Hct 39.6 Plt Count 223 Sodium 139 Potassium 3.7 Chloride 104 Carbon Dioxide 27 BUN 17 Creatinine 1.06 Glucose 165 H Calcium 9.2 Short CBC 10/07/16 Range/Units 04:43 WBC 3.4 L (4.3-11.1) K/mcL Hgb 12.7 (11.5-15.4) g/dL Hct 39.6 (35.3-44.9) % Plt Count 223 (140-400) K/mcL Neutrophils # 1.6 (1.6-8.9) K/mcL BMP 10/07/16 Range/Units 04:43 Sodium 139 (136-145) mEq/L Potassium 3.7 (3.5-4.5) mEq/L Chloride 104 (98-109) mEq/L Carbon Dioxide 27 (19-29) mEq/L BUN 17 (7-20) mg/dL Creatinine 1.06 (0.57-1.11) mg/dL Glucose 165 H (70-99) mg/dL Calcium 9.2 (8.6-10.8) mg/dL Active Medications Acetaminophen (Tylenol) 650 mg PO Q6HR PRN PRN Reason: Fever Stop: 04/06/17 20:45 Last Admin: 10/06/16 09:21 Dose: 650 mg Acetaminophen/Aspirin/Caffeine (Excedrin Ex) 2 each PO DAILY PRN PRN Reason: Headache Stop: 04/07/17 09:01 Last Admin: 10/06/16 18:30 Dose: 2 each Aspirin (Aspirin Ec) 81 mg PO DAILY [facility] Stop: 04/07/17 09:01 Last Admin: 10/07/16 08:40 Dose: 81 mg Atorvastatin Calcium (Lipitor) 40 mg PO HS [facility] Stop: 04/06/17 21:16 Last Admin: 10/06/16 21:22 Dose: 40 mg Carvedilol (Coreg) 6.25 mg PO BIDWM DEMETRA PRN Reason: Protocol Stop: 04/07/17 17:01 Last Admin: 10/07/16 08:41 Dose: Not Given Citalopram Hydrobromide (Celexa) 40 mg PO DAILY [facility] Stop: 04/07/17 09:01 Last Admin: 10/07/16 08:41 Dose: 40 mg Dextrose/Water (Dextrose 50% (Syg)) 25 ml IVP AD PRN PRN Reason: Hypoglycemia Stop: 04/06/17 20:32 Last Admin: 10/06/16 06:19 Dose: 25 ml Fluticasone Propionate (Flonase) 50 mcg NS DAILY DEMETRA PRN Reason: Protocol Stop: 04/07/17 09:01 Last Admin: 10/07/16 08:41 Dose: Not Given Glucagon (Glucagen) 1 mg IM ONCE PRN PRN Reason: Hypoglycemia Stop: 04/06/17 20:32 Glucose (Gluctose) 15 gm PO ONCE PRN PRN Reason: Hypoglycemia Stop: 04/06/17 20:32 Glucose (Gluctose) 30 gm PO ONCE PRN PRN Reason: Hypoglycemia Stop: 04/06/17 20:32 Guaifenesin (Robitussin Liq) 200 mg PO Q6HR PRN PRN Reason: Cough Stop: 04/06/17 20:45 Last Admin: 10/06/16 18:25 Dose: 200 mg Heparin Sodium (Porcine) (Heparin) 5,000 unit SQ Q12HR DEMETRA Stop: 04/07/17 06:01 Last Admin: 10/07/16 04:40 Dose: 5,000 unit Dextrose (Dextrose 5%) 1,000 mls @ 100 mls/hr IV CONT PRN PRN Reason: HYPOGLYCEMIA Stop: 04/06/17 20:32 Insulin Detemir (Levemir) 70 unit SQ HS [facility] Stop: 04/06/17 21:01 Last Admin: 10/06/16 21:22 Dose: 70 unit Insulin Human Lispro (Humalog) 0 units SQ TIDAC [facility] PRN Reason: Protocol Stop: 04/07/17 18:31 Last Admin: 10/07/16 08:41 Dose: 4 units Insulin Human Lispro (Humalog) 0 units SQ HS [facility] PRN Reason: Protocol Stop: 04/07/17 21:01 Last Admin: 10/06/16 21:22 Dose: 4 units Isosorbide Mononitrate (Imdur) 30 mg PO DAILY@1200 [facility] Stop: 04/09/17 12:01 Lisinopril (Zestril) 10 mg PO DAILY DEMETRA PRN Reason: Protocol Stop: 04/07/17 09:01 Last Admin: 10/07/16 08:42 Dose: Not Given Naloxone HCl (Narcan) 0.4 mg IVP Q2MIN PRN PRN Reason: Opioid Reversal Stop: 04/06/17 20:29 Nitroglycerin (Nitroglycerin) 0.4 mg SL Q5MIN PRN PRN Reason: Chest Pain Stop: 04/06/17 20:35 Omeprazole (Prilosec) 40 mg PO 0630 DEMETRA Stop: 04/07/17 06:31 Last Admin: 10/07/16 04:39 Dose: 40 mg Ondansetron HCl (Zofran Odt) 4 mg SL Q6HR PRN PRN Reason: Nausea And Vomiting Stop: 04/06/17 20:29 Tramadol HCl (Ultram) 50 mg PO Q6HR PRN PRN Reason: Pain Stop: 04/06/17 20:34 - Imaging and Cardiology Echo: report reviewed (EF 35-40% global with regional variations) Cardiac cath: report reviewed (angiographically normal coronaies--EF 30%, severe diastolic dysfunction) - EKG Interpretation EKG results cardiology: other (12 hour tele AVG HR 80, SR no significant pauses or arrhythmias) Consult Discharge Plan - Plan Additional Instructions: RISK FACTORS: STOP SMOKING: If you smoke, STOP. Smoking or tobacco use significantly increases your risk of heart disease because nicotine causes the arteries to narrow or constrict. It also causes fats to stick to the artery. Your chances of having a heart attack are greatly increased if you continue to smoke. For more information, call the education line for smoking cessation 4-864-ZGZNZKB EAT A LOW FAT/CHOLESTEROL/SODIUM DIET: This diet may help reduce your chances of having a heart attack. LIFTING: Avoid lifting anything more than 10 pounds for 5-7 days Prior to straining, laughing, sneezing and/or coughing, apply manual pressure directly over insertion site. ACTIVITY: You may walk or climb stairs as tolerated You can resume sexual activity as tolerated In general, you are encouraged to engage in a minimum of 30 minutes or more of moderate intensity physical activity, such as brisk walking, daily or at least 3 -4 times weekly BATHING Do not submerge the site into water (bath tub, hot tub, swimming pool) for 1 week. This can be a source for infection into the blood stream. You may shower after 24 hours SITE CARE: After 24 hours, you may remove the dressing and leave the site open to air. Keep the site clean and dry. Clean gently and pat dry. You can expect bruising and tenderness that gradually resolve within a week or two. Return to work as instructed per your physician Resume driving as instructed per physician Keep all scheduled follow up appointments Resume medications as instructed IMPORTANT: If prescribed a Platelet Aggregation Inhibitor such as, Plavix, Brilinta or Effient: Duration of therapy is minimum one year These medications are often used in combination with Aspirin in prevention of future heart attacks Never discontinue unless consult with your Television Reporter STROKE (CVA) Risk factors for a stroke are: Age, cigarette smoking, diabetes, excessive alcohol consumption, family history, high blood pressure, overweight, physical inactivity, prior stroke, heart attack, diagnosis of carotid artery stenosis or other artery disease. Warning signs: Sudden numbness or weakness of the face, arm or leg; especially on one side of the body, sudden confusion, trouble speaking or understanding, sudden trouble seeing in one or both eyes, sudden trouble walking, dizziness, loss of balance or coordination, sudden severe headache with no cause. Call 911 or go to the Emergency Room. CONGESTIVE HEART FAILURE: If you have been diagnosed with Congestive Heart Failure (CHF) and your symptoms return, make an appointment with your physician Weigh yourself daily. Notify your physician if you have a weight gain of two or more pounds in one day or five or more pounds in one week. If you experience any difficulty breathing, please call 911 BLEEDING: Although the risk of bleeding is minimal, it can happen. If you have any bleeding from the site, apply firm pressure above the puncture site for 10-15 minutes. If the bleeding does not stop, continue manual pressure and call 911 Contact your physician if: You develop a fever greater than 101 degrees Fahrenheit Your site becomes reddened or has any drainage You have an increase in pain or burning at the site or if a large knot forms at the site. If you experience chest pain, shortness of breath, dizziness, or extreme tiredness, stop the activity and rest. Please notify your physicians office if you experience any of these symptoms and they are not relieved by rest please call 911! Referrals: Quoc Cordoba DO [Primary Care Provider] -
[2016-10-07 15:18] VITALS: BP 100/62
--- NOTE | 2016-10-07 16:06 | Discharge Summary ---
Date of Encounter: 10/07/16 Time of Encounter: 15:00 - Discharge Diagnosis (1) Systolic congestive heart failure Priority: Primary Status: Acute Qualifiers: Congestive heart failure chronicity: acute Qualified Code(s): I50.21 - Acute systolic (congestive) heart failure (2) Chest pain Priority: Primary Status: Acute Qualifiers: Chest pain type: precordial chest pain Qualified Code(s): R07.2 - Precordial pain (3) Hypertension Priority: Secondary Status: Acute Qualifiers: Hypertension type: essential hypertension Qualified Code(s): I10 - Essential (primary) hypertension (4) Hyperlipidemia Priority: Secondary Status: Chronic Qualifiers: Hyperlipidemia type: unspecified Qualified Code(s): E78.5 - Hyperlipidemia , unspecified (5) Diabetes mellitus, type 2 Priority: Secondary Status: Chronic Qualifiers: Diabetes mellitus complication status: without complication Diabetes mellitus [facility] insulin use: with director long term care use Qualified Code(s): E11.9 - Type 2 diabetes mellitus without complications; Z79.4 - senior living (current) use of insulin (6) DVT prophylaxis Priority: Secondary Status: Acute - Discharge Medications Prescriptions: Atorvastatin [Lipitor] 40 mg PO HS #30 tablet Carvedilol [Coreg] 3.125 mg PO BIDWM #30 tablet Lisinopril [Zestril] 2.5 mg PO DAILY #30 tablet Home Medications: Citalopram [CeleXA] 40 mg PO DAILY 06/07/15 [History] Fluticasone Propionate Nasal [Flonase] 50 mcg NS DAILY 06/07/15 [History] Liraglutide [Victoza 2-Luis A] 1.2 mg SQ QAM 06/07/15 [History] Omeprazole [PriLOSEC] 40 mg PO DAILY 06/07/15 [History] TraMADol [Ultram] 50 - 100 mg PO Q6HR PRN 06/07/15 [History] Aspirin [Lo-Dose Aspirin EC] 81 mg PO DAILY 10/05/16 [History] Aspirin/Acetaminophen/Caffeine [Excedrin Extra Strength Caplet] 2 tab PO DAILY 10/05/16 [History] Insulin Glargine,Hum.rec.anlog [Lantus Solostar] 70 unit SQ HS 10/05/16 [History ] Atorvastatin [Lipitor] 40 mg PO HS #30 tablet 10/07/16 [Rx] Carvedilol [Coreg] 3.125 mg PO BIDWM #30 tablet 10/07/16 [Rx] Lisinopril [Zestril] 2.5 mg PO DAILY #30 tablet 10/07/16 [Rx] Allergies/Adverse Reactions: Allergies No Known Allergies Allergy (Verified 06/07/15 13:52) Procedures/tests Complete & Pending: Procedures Performed prior 72 hours Category Date Time Status CL Cardiac Catheterization [CL] Routine Scallop Dredger 10/06/16 12:47 Completed ECG 12 lead ECG [ECG] AM 0600 Y 10/06/16 06:00 Ordered EV echocardiogram Routine Y 10/06/16 20:32 Completed Date of admission: 10/05/16 18:11 Primary care physician: Quoc Cordoba Consults: 10/05/16 20:30 Consult to Cardiology [CONS] Routine Comment: Consulting Provider: Juan Jose Noriega Reason for Consult: chest pain,EKG changes consistent with LBBB Call Completed: Yes 10/06/16 16:13 Consult to Cardiac Rehabilitation-Phase1 [CONS] Routine Comment: Reason for Consult: post op cath Call Completed: Yes Discharging clinician: Mac Soliman Anticipated date of discharge: 10/07/16 - Patient Status Disposition: Home, Self-Care Condition: Good Functional capacity at discharge: independent ambulation Overall status at discharge: patient is back to baseline - Discharge Instructions Follow Up With: Juan Jose Noriega [Provider Group] Quoc Cordboa DO [Primary Care Provider] - 11/13/16 10:30 am Additional Instructions: RISK FACTORS: STOP SMOKING: If you smoke, STOP. Smoking or tobacco use significantly increases your risk of heart disease because nicotine causes the arteries to narrow or constrict. It also causes fats to stick to the artery. Your chances of having a heart attack are greatly increased if you continue to smoke. For more information, call the education line for smoking cessation 0-248-NZCETDQ EAT A LOW FAT/CHOLESTEROL/SODIUM DIET: This diet may help reduce your chances of having a heart attack. LIFTING: Avoid lifting anything more than 10 pounds for 5-7 days Prior to straining, laughing, sneezing and/or coughing, apply manual pressure directly over insertion site. ACTIVITY: You may walk or climb stairs as tolerated You can resume sexual activity as tolerated In general, you are encouraged to engage in a minimum of 30 minutes or more of moderate intensity physical activity, such as brisk walking, daily or at least 3 -4 times weekly BATHING Do not submerge the site into water (bath tub, hot tub, swimming pool) for 1 week. This can be a source for infection into the blood stream. You may shower after 24 hours SITE CARE: After 24 hours, you may remove the dressing and leave the site open to air. Keep the site clean and dry. Clean gently and pat dry. You can expect bruising and tenderness that gradually resolve within a week or two. Return to work as instructed per your physician Resume driving as instructed per physician Keep all scheduled follow up appointments Resume medications as instructed IMPORTANT: If prescribed a Platelet Aggregation Inhibitor such as, Plavix, Brilinta or Effient: Duration of therapy is minimum one year These medications are often used in combination with Aspirin in prevention of future heart attacks Never discontinue unless consult with your Maintenance Parts Technician STROKE (CVA) Risk factors for a stroke are: Age, cigarette smoking, diabetes, excessive alcohol consumption, family history, high blood pressure, overweight, physical inactivity, prior stroke, heart attack, diagnosis of carotid artery stenosis or other artery disease. Warning signs: Sudden numbness or weakness of the face, arm or leg; especially on one side of the body, sudden confusion, trouble speaking or understanding, sudden trouble seeing in one or both eyes, sudden trouble walking, dizziness, loss of balance or coordination, sudden severe headache with no cause. Call 911 or go to the Emergency Room. CONGESTIVE HEART FAILURE: If you have been diagnosed with Congestive Heart Failure (CHF) and your symptoms return, make an appointment with your physician Weigh yourself daily. Notify your physician if you have a weight gain of two or more pounds in one day or five or more pounds in one week. If you experience any difficulty breathing, please call 911 BLEEDING: Although the risk of bleeding is minimal, it can happen. If you have any bleeding from the site, apply firm pressure above the puncture site for 10-15 minutes. If the bleeding does not stop, continue manual pressure and call 911 Contact your physician if: You develop a fever greater than 101 degrees Fahrenheit Your site becomes reddened or has any drainage You have an increase in pain or burning at the site or if a large knot forms at the site. If you experience chest pain, shortness of breath, dizziness, or extreme tiredness, stop the activity and rest. Please notify your physicians office if you experience any of these symptoms and they are not relieved by rest please call 911! - Diet and Activity Activity: increase activity as tolerated Diet: diabetic diet Interval History: Ms. Layne is a 56 year old female past medical history of hypertension, diabetes , hyperlipidemia, GERD, obese, endometrial cancer status post hysterectomy was transferred to the ER from urgent care for evaluation of chest pain. Patient states that she is currently going through an upper respiratory tract infection which she got from her granddaughter. She went to an urgent care for evaluation of her URI symptoms but she states that the night prior she was not able to lay flat and continued to have chest pressure along with diaphoresis due to which she was transferred to the ER. Patient was given aspirin 324 milligrams by mouth prior to her transfer. In the ER, patient was chest pain-free however EKG was consistent with left bundle branch block. During my evaluation patient is resting comfortably in bed, denies any chest pain, shortness of breath at this time states she has chronic cough and feels congested. Denies any prior cardiac workup but states she has history of chest pain in the past. At this time she is chest pain-free and denies any headache, lightheadedness, shortness of breath, abdominal pain, nausea, vomiting, fever, or chills. Hospital course: Ms. Layne is a 56 year old female admitted as chest pain to rule out ACS. She has 3 sets of troponin negative. She had no further chest pain after admission. However, her echo showed systolic CHF with EF of 35-40%. Cardiology saw patient and did catheterization. Result shows that his nonischemic cardiomyopathy, with EF 30%. Patient was placed on TREVOR inhibitor and beta kalli. She will participate in cardiac rehabilitation and follow-up at cardiology office. Patient will be discharged home today. I saw and examined the patient today. She is awake alert, oriented 3. No fever, no chest pain, no shortness of breath, no nausea, no vomiting. BP is low in the morning. Medication has been adjusted by cardiology. Her BP is normalized in the afternoon with BP 100/62. Patient denies any dizziness or lightheaded. Will discharge patient home with low-dose lisinopril and coreg, as recommended by cardiology. - Time Spent with Patient Total time spent providing and/or coordinating discharge services: 40 minute Greater than 30 minutes - Constitutional Vitals: Temp Pulse Resp BP Pulse Ox 98.9 F 84 16 100/62 94 L 10/07/16 15:16 10/07/16 15:16 10/07/16 15:16 10/07/16 15:16 10/07/16 15:16 General appearance: Present: A&O X 3, pleasant, no acute distress, answers questions appropriately - Head Head exam: Present: atraumatic, normocephalic - Eye Eye exam: Present: PERRL, conjuntiva pink, sclera anicteric Pupils: Present: PERRL - Neck Neck exam general surgery: Present: supple, trachea midline. Absent: lymphadenopathy - Respiratory Respiratory exam: Present: CTAB. Absent: accessory muscle use, rales, rhonchi, wheezes - Cardiovascular Cardiovascular exam: Present: RRR, +S1, +S2. Absent: diastolic murmur, gallop, rubs, systolic murmur - GI/Abdominal GI/Abdominal exam: Present: normal bowel sounds, soft, no peritoneal signs. Absent: distended, tenderness - Extremities Exam Extremities exam: Present: warm, radial pulses palpable and symetrical. Absent : calf tenderness, cyanotic, pedal edema - Neurological Exam Neurological exam: Present: CN II-XII intact, oriented X3, no focal deficits. Absent: pronater drift, facial droop, speech deficit - Skin Skin exam: Present: dry, intact
[2016-10-08] MEDS ORDERED: Isosorbide MONOnitrate (24 HR) 30 MG TAB.ER.24H PO SCH (12:00)
== END 2016-10-07 17:30 | disposition home or self-care (01) ==
LOC: 3BNU 16:23 → EMEROO 16:23 → SUATTDRO 18:11 → 3BNU 18:41
PROVIDERS: ADMIT Internal Medicine; ATTEND Internal Medicine

== ENCOUNTER 2020-07-17 09:57 | Inpatient (IN) ==
[2020-07-17] MEDS ORDERED: Ringers Solution, Lactated 1,000 ML IVC SCH (10:15)
[2020-07-17 10:44] LABS: Basophils # 0.1 K/mcL (0.0-0.2); Basophils % 0.8 %; Eosinophils # 0.2 K/mcL (0.0-0.6); Hematocrit 47.7 % (35.3-44.9); Hemoglobin 14.1 g/dL (11.5-15.4); Immature Granulocytes % 0.2 % (0-4); Lymphocytes # 1.6 K/mcL (0.6-4.6); Mean Corpuscular HGB Conc 29.6 g/dL (31.6-35.5); Mean Corpuscular Hemoglobin 24.7 pg (28.0-33.3); Mean Corpuscular Volume 83.5 fL (83.0-100.0); Monocytes # 0.4 K/mcL (0.0-1.3); Monocytes % 4.4 %; Neutrophils # 7.6 K/mcL (1.6-8.9); Platelet Count 318 K/mcL (140-400); Red Blood Count 5.71 M/mcL (3.82-4.97); Red Cell Distribution Width 14.5 % (11.5-14.5); Segmented Neutrophils % 76.6 %
[2020-07-17 10:46] LABS: INR 1.2; Prothrombin Time 13.3 Seconds (9.4-12.1)
[2020-07-17 10:56] LABS: BUN/Creatinine Ratio 14 (6-26); Blood Urea Nitrogen 12 mg/dL (8-23); Calcium 9.4 mg/dL (8.6-10.3); Carbon Dioxide 26 mEq/L (23-29); Chloride 102 mEq/L (98-107); Glucose 196 mg/dL (70-105); Osmolality,Calculated 291 (280-300); Potassium 3.7 mEq/L (3.5-5.1); Sodium 138 mEq/L (136-145); eGFR For African Americans > 60 (> 60); eGFR For Non-African Americans > 60 (> 60)
[2020-07-17] MEDS ORDERED: carvediloL 6.25 MG TABLET PO STA (11:39)
[2020-07-17] MEDS ORDERED: Acetaminophen IV 1,000 MG/100 ML INFUS..BTL IVPB ONE (11:39)
[2020-07-17] MEDS ORDERED: *HR* Meperidine 25 MG/ML SYRINGE IVP PRN (11:40)
[2020-07-17] MEDS ORDERED: Ondansetron 4 MG/2 ML VIAL IVP PRN ×2 (11:40→17:15)
[2020-07-17] MEDS ORDERED: Promethazine 6.25 MG in Water for inj. (sterile) 20 ML IVPB PRN (11:40)
[2020-07-17] MEDS ORDERED: *HR* HYDROmorphone PF 0.5 MG/0.5 ML SYRINGE IVP PRN (11:40)
[2020-07-17] MEDS ORDERED: Heparin 1,000 UNITS/500 mL 500 ML ONE (12:26)
[2020-07-17] MEDS ORDERED: cefOXitin 2,000 MG in Water for inj. (sterile) 20 ML IVP ONE (12:26)
[2020-07-17] MEDS ORDERED: Lidocaine -MPF 2% 2 ML VIAL ONE (12:48)
[2020-07-17] MEDS ORDERED: Lidocaine HCL 4 ML Topical Solution (Laryng-O-Jet Kit Sterile Pak) TP ONE (12:48)
[2020-07-17] MEDS ORDERED: Dexamethasone 4 MG/ML VIAL ONE (12:48)
[2020-07-17] MEDS ORDERED: Ondansetron 4 MG/2 ML VIAL ONE (12:48)
[2020-07-17] MEDS ORDERED: *HR* Succinylcholine 200 MG/10 ML VIAL IVP ONE (12:48)
[2020-07-17] MEDS ORDERED: *HR* Rocuronium Bromide 50 MG/5 ML VIAL ONE ×2 (12:48→14:17)
[2020-07-17] MEDS ORDERED: *HR* Propofol 200 MG/20 ML VIAL IVP ONE (12:50)
[2020-07-17] MEDS ORDERED: *HR* FentaNYL (PF) 100 MCG/2 ML VIAL ONE ×2 (12:51→14:08)
[2020-07-17] MEDS ORDERED: *HR* Midazolam HCl 2 MG/2 ML VIAL ONE (13:19)
[2020-07-17] MEDS ORDERED: *HR* HYDROMORPHONE 2 MG/ML VIAL ONE (14:19)
[2020-07-17] MEDS ORDERED: Naloxone 0.4 MG/ML INJ IVP PRN (17:15)
[2020-07-17] MEDS: *HR* Heparin 5,000 UNIT/ML VIAL SQ SCH (20:49)
[2020-07-17] MEDS: Ketorolac 15 MG/ML VIAL IVP SCH ×2 (20:55→23:29)
[2020-07-17] MEDS: 0.9 % Sodium Chloride 1,000 ML IVC SCH (20:56)
[2020-07-17] MEDS: Insulin LISPRO 300 UNITS/3 ML VIAL SQ SCH (22:29)
[2020-07-18 04:45] LABS: Basophils % 0.1 %; Immature Granulocytes % 0.3 % (0-4); Lymphocytes # 0.8 K/mcL (0.6-4.6); Lymphocytes % 8.6 %; Mean Corpuscular HGB Conc 31.3 g/dL (31.6-35.5); Mean Corpuscular Volume 83.2 fL (83.0-100.0); Mean Platelet Volume 10.5 fL (9.4-12.4); Monocytes # 0.5 K/mcL (0.0-1.3); Monocytes % 5.1 %; Neutrophils # 7.9 K/mcL (1.6-8.9); Platelet Count 276 K/mcL (140-400); Red Blood Count 4.69 M/mcL (3.82-4.97); Red Cell Distribution Width 14.4 % (11.5-14.5); Segmented Neutrophils % 85.9 %; White Blood Count 9.2 K/mcL (4.3-11.1)
[2020-07-18 04:46] LABS: Hemoglobin 12.2 g/dL (11.5-15.4)
[2020-07-18 04:56] LABS: BUN/Creatinine Ratio 15 (6-26); Blood Urea Nitrogen 13 mg/dL (8-23); Calcium 8.9 mg/dL (8.6-10.3); Carbon Dioxide 26 mEq/L (23-29); Chloride 103 mEq/L (98-107); Glucose 202 mg/dL (70-105); Osmolality,Calculated 288 (280-300); Potassium 3.6 mEq/L (3.5-5.1); Sodium 136 mEq/L (136-145); eGFR For African Americans > 60 (> 60); eGFR For Non-African Americans > 60 (> 60)
[2020-07-18] MEDS: *HR* Heparin 5,000 UNIT/ML VIAL SQ SCH ×2 (05:58→19:18)
[2020-07-18] MEDS: Ketorolac 15 MG/ML VIAL IVP SCH ×4 (05:58→23:43)
[2020-07-18] MEDS: Insulin LISPRO 300 UNITS/3 ML VIAL SQ SCH ×4 (09:01→20:52)
[2020-07-18] MEDS: 0.9 % Sodium Chloride 1,000 ML IVC SCH (12:00)
[2020-07-19] MEDS: *HR* Heparin 5,000 UNIT/ML VIAL SQ SCH (05:10)
[2020-07-19] MEDS: 0.9 % Sodium Chloride 1,000 ML IVC SCH (05:10)
[2020-07-19] MEDS: Ketorolac 15 MG/ML VIAL IVP SCH ×2 (05:11→13:37)
[2020-07-19 06:25] VITALS: BP 148/91
[2020-07-19] MEDS: Insulin LISPRO 300 UNITS/3 ML VIAL SQ SCH ×2 (08:33→13:36)
[2020-07-19] MEDS ORDERED: Gabapentin 400 MG CAPSULE PO PRN (08:39)
[2020-07-19] MEDS ORDERED: *HR* Glimepiride 4 MG TABLET PO SCH (09:00)
[2020-07-19] MEDS ORDERED: lisinopriL 5 MG TABLET PO SCH (09:00)
[2020-07-19] MEDS ORDERED: carvediloL 6.25 MG TABLET PO SCH (17:00)
== END 2020-07-19 14:00 | disposition home or self-care (01) | DRG 231 ==
LOC: SAMDAY 09:57 → 3ANU 17:05
PROVIDERS: ADMIT Surgery; ATTEND Surgery